=== PATIENT | male | born 1990 | race Caucasian/White ===

== ENCOUNTER 2024-04-01 10:24 | Emergency (ER) | payer MEDICAID ==
[~2024-04-01] VITALS: Ht 180.3 cm; Wt 110.0 kg
[2024-04-01 10:32] VITALS: O2SAT 99
[2024-04-01] MEDS: KETOROLAC 15MG/ML VIAL IM ONE (11:04)
[2024-04-01] MEDS: LIDOCAINE 5% PATCH TOP SCH (11:06)
[2024-04-01] MEDS ORDERED: NAPR-1176 MT (12:20)
[2024-04-01] MEDS ORDERED: LIDO700A15 TP (12:20)
[2024-04-01 12:38] VITALS: BP 117/59; PULSE 100; RESP 16; TEMP 98.5
== END 2024-04-01 13:39 | disposition home or self-care (01) ==
LOC: ER 10:24
DX: M54.50 Low back pain, unspecified (principal)
CPT/HCPCS: 96372; 99283; J1885; Z7610